=== PATIENT | male | born 1975 | race African-American/Black ===

== ENCOUNTER 2019-06-23 12:12 | Emergency (ER) | payer BC ==
--- NOTE | 2019-06-23 12:25 | ER Document Report ---
ED Medical Screen (RME) - General Chief Complaint: Nausea/Vomiting/Diarrhea Stated Complaint: POSSIBLE ADVERSE REACTION Time Seen by Provider: 06/23/19 12:19 Mode of Arrival: Ambulatory Information source: Patient Notes: 43-year-old male presents with complaints of abdominal pain "like a rock is in my stomach "with nausea vomiting diarrhea. He reports on June 14 he had an abscess to his tooth. On June 15 he went to urgent care they placed him on clindamycin. He has been taking the clindamycin since that time. He reports on Wednesday his stomach was upset. And then he was up all night with nausea vomiting diarrhea. Reports he has been having it since that time. Reports on Wednesday he had a low-grade temp of 100.8. Reports if he eats or drinks anything it goes straight through him. I have greeted and performed a rapid initial assessment of this patient. A comprehensive ED assessment and evaluation of the patient, analysis of test results and completion of the medical decision making process will be conducted by additional ED providers. TRAVEL OUTSIDE OF THE [place] IN LAST 30 DAYS: No - Related Data Allergies/Adverse Reactions: No Known Allergies Allergy (Verified 06/23/19 12:19) Past Medical History - Social History Chew tobacco use (# tins/day): No Frequency of alcohol use: Occasional Drug Abuse: None
[2019-06-23 12:43] LABS: ABSOLUTE BASOPHILS # (AUTO) 0.1 10^3/uL (0.0-0.2); ABSOLUTE EOSINOPHILS # (AUTO) 0.1 10^3/uL (0.0-0.6); ABSOLUTE LYMPHOCYTES (AUTO) 2.5 10^3/uL (0.5-4.7); ABSOLUTE MONOCYTES (AUTO) 0.7 10^3/uL (0.1-1.4); ABSOLUTE NEUT (AUTO) 9.5 10^3/uL (1.7-8.2); BASOPHILS % (AUTO) 0.5 % (0-2); EOSINOPHILS % (AUTO) 0.4 % (0-6); HEMATOCRIT 46.2 % (37.9-51.0); HEMOGLOBIN 16.6 g/dL (13.5-17.0); LYMPHOCYTES % (AUTO) 19.2 % (13-45); MEAN CORPUSCULAR HEMOGLOBIN 32.5 pg (27.0-33.4); MEAN CORPUSCULAR HGB CONC 35.9 g/dL (32.0-36.0); MEAN CORPUSCULAR VOLUME 91 fl (80-97); MONOCYTES % (AUTO) 5.7 % (3-13); PLATELET COUNT 242 10^3/uL (150-450); RED BLOOD COUNT 5.11 10^6/uL (4.35-5.55); RED CELL DISTRIBUTION WIDTH 12.7 % (11.5-14.0); SEGMENTED NEUTROPHILS % (AUTO) 74.2 % (42-78); TOTAL CELLS COUNTED % (AUTO) 100 %; WHITE BLOOD COUNT 12.9 10^3/uL (4.0-10.5)
[2019-06-23 12:47] LABS: APPEARANCE,URINE SLIGHTLY-CLOUDY; BILIRUBIN,URINE NEGATIVE (NEGATIVE); COLOR,URINE YELLOW; GLUCOSE, URINE NEGATIVE (NEGATIVE); KETONES,URINE NEGATIVE (NEGATIVE); LEUKOCYTE ESTERASE,URINE NEGATIVE (NEGATIVE); NITRITE,URINE NEGATIVE (NEGATIVE); PROTEIN,URINE 30 mg/dL (NEGATIVE); URINE SPECIFIC GRAVITY 1.027; UROBILINOGEN,URINE NEGATIVE mg/dL (<2.0)
[2019-06-23 13:02] LABS: ALBUMIN 4.4 g/dL (3.5-5.0); ALKALINE PHOSPHATASE 74 U/L (38-126); ANION GAP 5 (5-19); ASPARTATE AMINO TRANSFERASE 33 U/L (17-59); BILIRUBIN,TOTAL 0.5 mg/dL (0.2-1.3); BLOOD UREA NITROGEN 12 mg/dL (7-20); CALCIUM 9.8 mg/dL (8.4-10.2); CARBON DIOXIDE 31 mmol/L (22-30); CHLORIDE 102 mmol/L (98-107); GLUCOSE 100 mg/dL (75-110); TOTAL PROTEIN 7.4 g/dL (6.3-8.2)
[2019-06-23] MEDS ORDERED: NORMAL SALINE 1000 ML 1,000 ML IV ONE (13:43)
[2019-06-23] MEDS ORDERED: PANTOPRAZOLE SODIUM 40 MG VIAL IV ONE (13:43)
[2019-06-23] MEDS ORDERED: ONDANSETRON HCL INJ/PF 4 MG/2 ML SDV IV ONE (13:44)
--- NOTE | 2019-06-23 16:43 | RADIOLOGY REPORT (SQ) ---
EXAM DESCRIPTION: CT ABD/PELVIS WITH IV ORAL IMAGES COMPLETED DATE/TIME: 06/23/2019 4:20 pm REASON FOR STUDY: v/v/diarrhea COMPARISON: None. TECHNIQUE: CT scan of the abdomen and pelvis performed using helical scanning technique with dynamic intravenous contrast injection. Patient was given oral contrast. Images reviewed with lung, soft ti ssue, and bone windows. Reconstructed coronal and sagittal MPR images reviewed. Delayed images for ev aluation of the urinary system also acquired. All images stored on PACS. All CT scanners at this facility use dose modulation, iterative reconstruction, and/or weight based d osing when appropriate to reduce radiation dose to as low as reasonably achievable (ALARA). [facility]: Dose Right [facility]: CareDose [facility]: Dose Right [facility]: Teradose 4D [facility]: [place] CONTRAST TYPE AND DOSE: contrast/concentration: Isovue 350.00 mg/ml; Total Contrast Delivered: 95.0 ml; Total Saline Delivered: 71.0 ml RENAL FUNCTION: None required. The patient is less than 50 years old. RADIATION DOSE: CT Rad equipment meets quality standard of care and radiation dose reduction techniq ues were employed. CTDIvol: 7.5 - 10.4 mGy. DLP: 905 mGy-cm.. LIMITATIONS: None. FINDINGS: LOWER CHEST: No significant findings. No nodules or infiltrates. LIVER: Normal size. No masses. No dilated ducts. SPLEEN: Normal size. No focal lesions. PANCREAS: No masses. No significant calcifications. No adjacent inflammation or peripancreatic fluid collections. Pancreatic duct not dilated. GALLBLADDER: No identified stones by CT criteria. No inflammatory changes to suggest cholecystitis. ADRENAL GLANDS: No significant masses or asymmetry. RIGHT KIDNEY AND URETER: No solid masses. No significant calcifications. No hydronephrosis or hyd roureter. LEFT KIDNEY AND URETER: No solid masses. No significant calcifications. No hydronephrosis or hydr oureter. AORTA AND VESSELS: No aneurysm. No dissection. Renal arteries, SMA, celiac without stenosis. RETROPERITONEUM: No retroperitoneal adenopathy, hemorrhage or masses. BOWEL AND PERITONEAL CAVITY: No evidence intestinal obstruction. There is relative wall thickening a t the cecum without significant pericecal inflammatory change. Additional questionable thickening at the level of the splenic flexure. APPENDIX: Normal. PELVIS: No mass. No free fluid. Normal bladder. ABDOMINAL WALL: No masses. No hernias. BONES: No acute bony abnormality. Sclerotic area along the inferior endplate of L2, nonspecific. No other discrete lytic or blastic osseous lesion. OTHER: No other significant finding. IMPRESSION: 1. Questionable colonic wall thickening involving the cecum and splenic flexure suggest rebecca of colitis. No evidence of intestinal obstruction. 2. Normal appendix. TECHNICAL DOCUMENTATION: JOB ID: [id number] Quality ID # [id number]: Final reports with documentation of one or more dose reduction techniques (e.g., Au tomated exposure control, adjustment of the mA and/or kV according to patient size, use of iterative reconstruction technique) 2010 [employer]- All Rights Reserved Reading location - IP/workstation name: [facility]
--- NOTE | 2019-06-23 18:31 | PDOC CONSULTATION ---
Consultation Consult Date: 06/23/19 Attending physician:: JESÚS GASCA Provider Consulted: SHEYLA MUSA Consult reason:: Evaluation for possible admission due to colitis History of Present Illness Admission Date/PCP: [facility] Patient complains of: Abdominal pain, diarrhea, nausea for 2 days History of Present Illness: ALTHEA QUIGLEY is a 43 year old male Patient presents emergency room with complaints of abdominal pain, loose bowel movement as well as diarrhea for the last 3 days. He said these was found to have a tooth abscess. He was started on clindamycin. This was started few days ago. He only took a few doses and then he started to have having abdominal pain nausea and and so he came to the emergency room to be to be evaluated. In the emergency room he a CAT scan done which showed questionable colitis around the sacrum as well as the around the splenic flexure. Patient states he has been having a lot of diarrhea. Since he has been in the emergency room though since about 11 AM until the time I saw him about 530 spanning knee. Over more than 6 hours he said he only had 1 bowel movement. He also had some bloody flecks associated with the diarrhea. He has had no nausea vomiting. Patient was of feeling much better. Is able to tolerate a diet. Stool WBC is negative. C. difficile is still pending Past Medical History Cardiac Medical History: Reports: Hyperlipidema, Hypertension Past Surgical History Past Surgical History: Reports: None Social History Information Source: Patient Smoking Status: Current Every Day Smoker Electronic Cigarette use?: No - Advance Directive Resuscitation Status: Full Code Family History Family History: Reviewed & Not Pertinent Parental Family History Reviewed: Yes Children Family History Reviewed: Yes Sibling(s) Family History Reviewed.: Yes Medication/Allergy Home Medications: Prednisone [Deltasone 10 mg Tablet] 10 mg PO ASDIR PRN #21 tablet 05/18/15 Methocarbamol [Robaxin 500 mg Tablet] 1,000 mg PO BID PRN #40 tablet 12/26/15 Oxycodone HCl/Acetaminophen [Percocet 5-325 mg Tablet] 1 - 2 tab PO ASDIR PRN #15 tablet 12/26/15 Allergies/Adverse Reactions: No Known Allergies Allergy (Verified 06/23/19 13:10) Review of Systems All systems: reviewed and no additional remarkable complaints except as stated Constitutional: ABSENT: headache(s) Nose, Mouth, and Throat: ABSENT: mouth pain, sore throat Musculoskeletal: ABSENT: muscle weakness Physical Exam Vital Signs: Temp Pulse Resp BP Pulse Ox 98.2 F 77 16 143/95 H 100 06/23/19 16:28 06/23/19 16:28 06/23/19 12:16 06/23/19 16:28 06/23/19 16:28 Intake & Output 06/22/19 06/23/19 06/24/19 06:59 06:59 06:59 Intake Total 1000 Balance 1000 Weight 82.9 kg General appearance: PRESENT: no acute distress, well-developed, well-nourished Head exam: PRESENT: atraumatic, normocephalic Eye exam: PRESENT: conjunctiva pink, EOMI, PERRLA. ABSENT: scleral icterus Ear exam: PRESENT: normal external ear exam Mouth exam: PRESENT: moist, tongue midline Neck exam: ABSENT: carotid bruit, JVD, lymphadenopathy, thyromegaly Respiratory exam: PRESENT: clear to auscultation [place]. ABSENT: rales, rhonchi, wheezes Cardiovascular exam: PRESENT: RRR, +S1, +S2. ABSENT: diastolic murmur, rubs, systolic murmur Pulses: PRESENT: normal dorsalis pedis pul Vascular exam: PRESENT: normal capillary refill GI/Abdominal exam: PRESENT: normal bowel sounds, soft. ABSENT: distended, guarding, mass, organolmegaly, rebound, tenderness Rectal exam: PRESENT: deferred Extremities exam: PRESENT: full ROM. ABSENT: calf tenderness, clubbing, pedal edema Neurological exam: PRESENT: alert, awake, oriented to person, oriented to place, oriented to time, oriented to situation, CN II-XII grossly intact. ABSENT: motor sensory deficit Psychiatric exam: PRESENT: appropriate affect, normal mood. ABSENT: homicidal ideation, suicidal ideation Skin exam: PRESENT: dry, intact, warm. ABSENT: cyanosis, rash Results Laboratory Results: 06/23/19 12:29 06/23/19 12:15 06/23/19 06/23/19 06/23/19 12:15 12:29 12:29 WBC 12.9 H RBC 5.11 Hgb 16.6 Hct 46.2 MCV 91 MCH 32.5 MCHC 35.9 RDW 12.7 Plt Count 242 Seg Neutrophils % 74.2 Sodium 138.2 Potassium 4.0 Chloride 102 Carbon Dioxide 31 H Anion Gap 5 BUN 12 Creatinine 1.01 Est GFR ( Amer) > 60 Glucose 100 Lactic Acid Calcium 9.8 Total Bilirubin 0.5 AST 33 Alkaline Phosphatase 74 Total Protein 7.4 Albumin 4.4 Lipase 53.7 Urine Color YELLOW Urine Appearance SLIGHTLY-CLOUDY Urine pH 5.0 Ur Specific [place] 1.027 Urine Protein 30 H Urine Glucose (UA) NEGATIVE Urine Ketones NEGATIVE Urine Blood MODERATE H Urine Nitrite NEGATIVE Ur Leukocyte Esterase NEGATIVE Urine WBC (Auto) 1 Urine RBC (Auto) 4 Stool for White Cells 06/23/19 06/23/19 13:58 16:12 WBC RBC Hgb Hct MCV MCH MCHC RDW Plt Count Seg Neutrophils % Sodium Potassium Chloride Carbon Dioxide Anion Gap BUN Creatinine Est GFR ( Amer) Glucose Lactic Acid 1.3 Calcium Total Bilirubin AST Alkaline Phosphatase Total Protein Albumin Lipase Urine Color Urine Appearance Urine pH Ur Specific [place] Urine Protein Urine Glucose (UA) Urine Ketones Urine Blood Urine Nitrite Ur Leukocyte Esterase Urine WBC (Auto) Urine RBC (Auto) Stool for White Cells NO WBCs SEEN Impressions: Abdomen/Pelvis CT 06/23/19 00:00 IMPRESSION: 1. Questionable colonic wall thickening involving the cecum and splenic flexure suggestive of colitis. No evidence of intestinal obstruction. 2. Normal appendix. Assessment and Plan - Diagnosis (1) Abdominal pain Is this a current diagnosis for this admission?: Yes (2) Colitis Is this a current diagnosis for this admission?: Yes - Plan Summary Summary: At this time with the patient not being toxic, able to tolerate his diet, no nausea or vomiting and hemodynamically stable I feel he can be discharged home and follow-up with his primary care physician. He has been advised to discontinue the clindamycin. We will start him on Augmentin 8 7 5 mg twice daily. He knows that it is imperative for him to follow-up with his primary care physician so that his colitis which I believe is likely from his diarrhea can be reevaluated and he can be referred appropriately if needed. Patient can be discharged home from the emergency room. He has been advised on the need to return if his symptoms persist or worsen. - Time Time Spent with patient: 25-34 minutes Smoking Cessation Education: 3 to 10 minutes Anticipated discharge: Home
[2019-06-23 18:49] VITALS: BP 146/80
--- NOTE | 2019-06-23 20:04 | ER Document Report ---
Entered by TJ BELTRAN SCRIBE 06/23/19 1408 Acting as scribe for:JESÚS GASCA MD ED General - General Chief Complaint: Nausea/Vomiting/Diarrhea Stated Complaint: POSSIBLE ADVERSE REACTION Time Seen by Provider: 06/23/19 12:19 Primary Care Provider: ELEANOR,[facility] [Primary Care Provider] - Follow up as needed Mode of Arrival: Ambulatory Information source: Patient Notes: This 43-year-old male presents to the emergency department complaining of vomiting and diarrhea for the past three days. Patient said that his symptoms are worsening and he has seen "red spots" in his vomit and stool. Patient reports nausea and abdominal pain. Patient explains the abdominal pain feels like "a rock in gut" and that his "intestines are twisting". Patient denies dizziness, headache and throat pain. Patient explains that he was seen at the urgent care for an abscess on his tooth. Patient said that he was prescribed a medication that he took for three days and he began to feel a "rock in his gut". Patient said that he stopped taking the medication because he felt that it was the cause of his symptoms. Patient explains that his tooth abscess has resolved. Patient said that [facility] to go to the same clinic that prescribed his medication and tell them what his symptoms have been. Patient said that the chief clerk at the clinic sent him to the emergency department. Patient later says that he has had similar symptoms in the past when he was a teenager and he was checked for ulcers but does not recall the results. TRAVEL OUTSIDE OF THE [place] IN LAST 30 DAYS: No - Related Data Allergies/Adverse Reactions: No Known Allergies Allergy (Verified 06/23/19 13:10) Past Medical History - General Information source: Patient - Social History Smoking Status: Current Every Day Smoker Cigarette use (# per day): Yes Chew tobacco use (# tins/day): No Frequency of alcohol use: Occasional Drug Abuse: None Lives with: Spouse/Significant other Family History: Reviewed & Not Pertinent Patient has suicidal ideation: No Patient has homicidal ideation: No - Past Medical History Cardiac Medical History: Reports: Hx Hypercholesterolemia, Hx Hypertension Pulmonary Medical History: Reports: Hx Pneumonia GI Medical History: Reports: Hx Gastroesophageal Reflux Disease Psychiatric Medical History: Reports: Hx Bipolar Disorder Surgical Hx: Negative Review of Systems - Review of Systems Constitutional: No symptoms reported EENT: See HPI, Throat pain Cardiovascular: See HPI, Dizziness Respiratory: No symptoms reported Gastrointestinal: See HPI, Abdominal pain, Diarrhea, Nausea, Vomiting, Rectal bleeding Genitourinary: No symptoms reported Male Genitourinary: No symptoms reported Musculoskeletal: No symptoms reported Skin: No symptoms reported Hematologic/Lymphatic: No symptoms reported Neurological/Psychological: See HPI, Headaches -: Yes All other systems reviewed and negative Physical Exam - Vital signs Vitals: Temp Pulse Resp BP Pulse Ox 98.9 F 72 16 151/124 H 97 06/23/19 12:16 06/23/19 12:16 06/23/19 12:16 06/23/19 12:16 06/23/19 12:16 - Notes Notes: Physical Exam: General: Alert, appears well. HEENT: Normocephalic. Atraumatic. PERRL. Extraocular movements intact. Oropharynx clear. Cracked tooth. Neck: Supple. Non-tender. Respiratory: No respiratory distress. Clear and equal breath sounds bilaterally. Cardiovascular: Regular rate and rhythm. Abdominal: Epigastric tenderness to palpation with minimal guarding. No distension. Normal Bowel Sounds. Back: No gross abnormalities. Extremities: Moves all four extremities. Upper extremities: Normal inspection. Normal ROM. Lower extremities: Normal inspection. No edema. Normal ROM. Neurological: Normal cognition. AAOx4. Normal speech. Psychological: Normal affect. Normal Mood. Skin: Warm. Dry. Normal color. Course - Re-evaluation Re-evalutation: 06/23/19 20:00 Patient resting comfortably waiting for results of his work-up There is no further nausea or vomiting while in the department. No diarrhea noted as well. However patient was able to provide a stool specimen to be sent to the laboratory.. 06/23/19 20:02 Case was discussed with the hospitalist team who consulted on patient and after their evaluation determined patient could be discharged home on Augmentin and to follow-up with his [place] [facility] clinic. Patient was agreeable with this de termination and was feeling better prior to discharge. - Vital Signs Vital signs: Temp Pulse Resp BP Pulse Ox 98.7 F 74 18 146/80 H 99 06/23/19 18:48 06/23/19 18:48 06/23/19 18:48 06/23/19 18:48 06/23/19 18:48 - Laboratory Result Diagrams: 06/23/19 12:29 06/23/19 12:15 Laboratory results interpreted by me: 06/23/19 06/23/19 06/23/19 12:15 12:29 12:29 WBC 12.9 H Absolute Neuts (auto) 9.5 H Carbon Dioxide 31 H Urine Protein 30 H Urine Blood MODERATE H 06/23/19 20:01 Patient has a 13,000 white count and otherwise labs unremarkable of note there is moderate amount of blood noted in the urine that was collected. Patient's c hemistries are unremarkable - Diagnostic Test Radiology reviewed: Image reviewed, Reports reviewed Radiology results interpreted by me: 06/23/19 20:01 CT scan of abdomen with oral and IV contrast disclose that patient has a thickened wall colon particularly in the area iliac flexure and splenic flexure. No other abnormality was noted. Discharge - Discharge Clinical Impression: Colitis, Nausea, vomiting, and diarrhea, Hematemesis, Bleeding per rectum Condition: Stable Disposition: HOME, SELF-CARE Admitting Provider: Sebastian (Hospitalist) Instructions: Diarrhea, Nonspecific ([facility]), Vomiting ([facility]) Additional Instructions: Colitis, Nonspecific Colitis is an inflammatory disease of the large intestine which affects the lining of the bowel. The cause is uncertain, though it is often caused by an infection. In some cases, the symptoms resolve and can return again in the future. Colitis is characterized by abdominal pain, often nausea and vomiting, and either diarrhea or difficulty with bowel movements. Sometimes blood will be present in the bowel movements. Fever is often present as well. Milder cases of colitis can be managed as an outpatient with medications for nausea and vomiting and pain, oral fluid therapy, and perhaps antibiotics, if a bacterial origin is suspected. Antidiarrhea medicine should usually be avoided in colitis. If you have increasing abdominal pain, repeated vomiting, fever, rectal bleeding, or worsening diarrhea, you should return for re-evaluation. Prescriptions: Amoxicillin/Potassium Clav [Augmentin 500-125 Tablet] 1 tab PO TID 10 Days #30 tablet Omeprazole 40 mg PO DAILY #20 capsule. Ondansetron [Zofran Odt 4 mg Tablet] 1 - 2 tab PO Q4H PRN #15 tab.rapdis PRN Reason: For Nausea/Vomiting [facility] [[facility] - Follow up as needed I personally performed the services described in the documentation, reviewed and edited the documentation which was dictated to the scribe in my presence, and it accurately records my words and actions.
[2019-06-23 20:52] LABS: C DIFFICILE GDH POSITIVE (NEGATIVE)
== END 2019-06-23 18:48 | disposition home or self-care (01) ==
LOC: ER 12:12
DX: K52.9 Noninfective gastroenteritis and colitis, unspecified (principal); K92.0 Hematemesis; K62.5 Hemorrhage of anus and rectum; R10.9 Unspecified abdominal pain; R42 Dizziness and giddiness; F17.210 Nicotine dependence, cigarettes, uncomplicated; E78.00 Pure hypercholesterolemia, unspecified; I10 Essential (primary) hypertension
CPT/HCPCS: 99284; 96361; 96374; 96375; 36415; 87045; 89055; 87205; 83605; 83690; 85025; 80053; 81001; 87493 ×2; 87324; 87449; 74177; C9113; J2405; J7030